=== PATIENT | female | born 1940 | race Caucasian/White ===

== ENCOUNTER 2022-05-11 08:58 | Day surgery (SDC) | payer MEDICARE ==
[~2022-05-11] VITALS: Ht 157.5 cm; Wt 39.8 kg
[2022-05-11] MEDS ORDERED: albumin 25% 100mL bottle x 1 IV PRN (09:25)
[2022-05-11] MEDS ORDERED: normal saline 1000ml 1,000 ML IV PRN (09:25)
[2022-05-11] MEDS ORDERED: ACET-1008 PO (10:17)
[2022-05-11] MEDS ORDERED: LOSA25TA41 PO (10:17)
[2022-05-11] MEDS ORDERED: ATOR40TA72 PO (10:17)
[2022-05-11] MEDS ORDERED: heparin sodium, porcine/PF 100unit/ml 5ML syringe ONE (11:53)
[2022-05-11] MEDS ORDERED: fentaNYL/PF 50MCG/1 ML 2ML syringe ONE (11:54)
[2022-05-11] MEDS ORDERED: midazolam 1 mg/ML 2ml injection ONE (11:54)
[2022-05-11 13:03] VITALS: BP 120/63
[2022-05-11 13:15] VITALS: BP 107/76
[2022-05-11 13:30] VITALS: BP 112/63
[2022-05-11 13:45] VITALS: BP 117/65
[2022-05-11 14:00] VITALS: BP 121/76
== END 2022-05-11 14:52 | disposition home or self-care (01) ==
LOC: SSTAY O 08:58
PROVIDERS: ATTEND Radiology Vascular & Interventional Radiology
DX: C34.12 Malignant neoplasm of upper lobe, left bronchus or lung (principal); I10 Essential (primary) hypertension; J44.9 Chronic obstructive pulmonary disease, unspecified; G43.909 Migraine, unspecified, not intractable, without status migrainosus; Z98.890 Other specified postprocedural states; Z90.710 Acquired absence of both cervix and uterus; Z79.899 Other long term (current) drug therapy
CPT/HCPCS: 32555; 36561; 76937; 77001; 99152; 99153; C1788; C1894; J1642; J2250; J3010; J7030; A4620; C1729